=== PATIENT | male | born 1965 | race African-American/Black ===

== ENCOUNTER 2019-10-22 15:09 | Inpatient (IN) | payer MEDICARE, OTHER ==
[~2019-10-22] VITALS: Ht 180.3 cm; Wt 108.0 kg
[2019-10-22 22:30] VITALS: BP 125/80
[2019-10-22] MEDS ORDERED: BACL10TA PO (22:54)
[2019-10-22] MEDS ORDERED: OLAN20TA3 PO (22:56)
[2019-10-22] MEDS ORDERED: AMLO5TAB9 PO (22:57)
[2019-10-22] MEDS ORDERED: GABA-532 PO (22:57)
[2019-10-22] MEDS ORDERED: CITA40TA22 PO (22:58)
[2019-10-22] MEDS ORDERED: DIVA500T2 PO (22:59)
[2019-10-22] MEDS ORDERED: TEMAZEPAM 7.5 MG CAPSULE PO PRN (23:00)
[2019-10-22] MEDS ORDERED: ACETAMINOPHEN 325 MG TABLET PO PRN (23:00)
[2019-10-22] MEDS ORDERED: MAG HYDROX/AL HYDROX/SIMETH 30 ML UDC PO PRN (23:00)
[2019-10-22] MEDS ORDERED: BLOOD SUGAR DIAGNOSTIC 1 EACH STRIP IN ONE (23:00)
[2019-10-22] MEDS ORDERED: MAGNESIUM HYDROXIDE 30 ML UDC PO PRN (23:00)
--- NOTE | 2019-10-23 00:01 | NUR ---
ADMISSION NOTES: ADMITTED THIS 54Y/O MALE PATIENT ADMIT FROM [facility], ADMITTED TO GPS ON 5150 HOLD, PER HOLD DANGER TO SELF, HEARING VOCIES TELL HIM TO KILL HIMSELF AND OTHER PEOPLE, NO SPECIFIC MEANS, SUBJECT STATED HE IS DIAGNOSED WITH BIPOLAR AND SCHIZOPHRENIA AND HAS NOT TAKEN MEDICATION IN TWO WEEKS , UPON FACE TO FACE ASSESSMENT PATIENT IS A&O X 3,FLAT AFFECT, EASILY GETS AGITATED, DENIES SI /HI AT THIS TIME, PT. IS POOR HISTORIAN, POOR INSIGHT ,POOR JUDGEMENT , PT. REFUSED TO SIGNS ADMISSION CONSENT PAPERS , DUE TO SLEEPING, PT. REFUSED INTITAALY BLOOD SUGAR CHECK , ENCOURAGED, EXPLAINED RISKS AND BENEFITS STILL REFUSED, PER PT. I DONT WANTS CHECK AT THIS TIME I AM SLEEPING , BOTH MD AWARE AND NOTIFIED OF THE ADMISSION, BELONGINGS CONTRABAND WERE DONE , NURSING ASSESSMENT DONE ,PT. RIGHTS DISCUSS BY MATERIAL INSPECTOR , PROVIDE THE PT. WITH HANDBOOK, AND MEDICATIONS GUIDE, ENVIRONMENTAL SAFETY CHECK DONE, ENCOURAGED PT. VERBALIZED ANY FEELING CONCERN TO STAFF, ORIENT TO UNIT POLICY, NO ACUTE DISTRESS NOTED,VITAL SIGNS WNL ,DENIES ANY PAIN AT THIS TIME,WILL CONTINUE TO MONITOR FOR Q15 SAFETY AND BEHAVIOR.
[2019-10-23] MEDS ORDERED: BACLOFEN (10 MG) 10 MG TABLET PO PRN (02:00)
--- NOTE | 2019-10-23 06:25 | NUR ---
RN NOTES: PT. REFUSED MRSA NARES SWAB , ENCOURAGED X3 STILL REFUSED , WILL CONTINUITY WITH CARE.
--- NOTE | 2019-10-23 07:04 | NUR ---
RN NOTES : PLACED CALL PT. FAMILY MEMBER HARDEEP ONIDIN REGRDING ABOUT ADMISSION LEFT MESSAGE # [phone] .
[2019-10-23 08:00] VITALS: BP 131/78
[2019-10-23] MEDS: AMLODIPINE BESYLATE 5 MG TABLET PO SCH (09:01)
[2019-10-23] MEDS: clonazePAM 0.5 MG TABLET PO PRN ×2 (10:31→20:53)
--- NOTE | 2019-10-23 10:31 | NUR ---
RN NOTE: PT AGITATED. REQUESTING SOMETHING FOR ANXIETY MEDICATED PT WITH PRN KLONOPIN PO,
[2019-10-23 16:00] VITALS: BP 132/96
[2019-10-23] MEDS: DIVALPROEX SODIUM 500 MG TABLET.DR PO SCH (17:13)
[2019-10-23] MEDS: CITALOPRAM HYDROBROMIDE 20 MG TABLET PO SCH (17:13)
[2019-10-23] MEDS: GABAPENTIN 100 MG CAPSULE PO SCH (17:13)
[2019-10-23 20:00] VITALS: BP 132/71
[2019-10-23 20:05] VITALS: BP 132/71
--- NOTE | 2019-10-23 20:55 | NUR ---
PRN KLONOPIN GIVEN PATIENT STATED THAT HE IS ANXIOUS, RESTLESS & WANTS TO TAKE ANXIETY MEDICINE. KLONOPIN 0.5 MG PO PRN GIVEN ORDERED.
[2019-10-23] MEDS: OLANZAPINE 10 MG TABLET PO SCH (21:57)
--- NOTE | 2019-10-23 22:00 | NUR ---
PATIENT REFUSED SKIN ASSESSMENT PATIENT REFUSED SKIN ASSESSMENT DESPITE OF RISK & BENEFIT EXPLANATION. PT STATED, " STOP BOTHERING ME, MY SKIN IS CLEAR". WILL CONTINUE TO MONITOR FOR ANY CHANGES.
[2019-10-24 07:23] LABS: BASOPHILS % (AUTO) 0.8 % (0.0-2.0); EOSINOPHILS % (AUTO) 1.4 % (0.0-6.0); HEMATOCRIT 42 % (39-51); HEMOGLOBIN 13.1 g/dL (13.5-17.5); LYMPHOCYTES # (AUTO) 1.7 /CMM (0.8-4.8); LYMPHOCYTES % (AUTO) 36.2 % (20.0-44.0); MEAN CORPUSCULAR HGB CONC 31 g/dl (31.0-36.0); MEAN CORPUSCULAR VOLUME 77 fL (80-96); MONOCYTES # (AUTO) 0.5 /CMM (0.1-1.30); MONOCYTES % (AUTO) 10.7 % (2.0-12.0); NEUTROPHILS # (AUTO) 2.4 /CMM (1.8-8.9); NEUTROPHILS % (AUTO) 50.9 % (43.0-81.0); PLATELET COUNT (AUTO) 213 /CMM (150-450); RED BLOOD CELL COUNT(AUTO) 5.46 MIL/uL (4.5-6.0); WHITE BLOOD COUNT (AUTO) 4.7 K/uL (4.3-11.0)
[2019-10-24 07:36] LABS: CALCIUM, SERUM 8.5 mg/dL (8.5-10.1); CREATININE 0.9 mg/dL (0.6-1.3); POTASSIUM 3.7 mmol/L (3.5-5.1)
[2019-10-24 08:00] VITALS: BP 109/62
[2019-10-24] MEDS: AMLODIPINE BESYLATE 5 MG TABLET PO SCH (09:00)
[2019-10-24] MEDS: DIVALPROEX SODIUM 500 MG TABLET.DR PO SCH ×3 (09:06→17:32)
[2019-10-24] MEDS: GABAPENTIN 100 MG CAPSULE PO SCH ×3 (09:06→17:32)
[2019-10-24] MEDS: CITALOPRAM HYDROBROMIDE 20 MG TABLET PO SCH (09:06)
[2019-10-24] MEDS: clonazePAM 0.5 MG TABLET PO PRN (13:00)
[2019-10-24 16:00] VITALS: BP 113/72
[2019-10-24 20:00] VITALS: BP 122/67
[2019-10-24 20:38] VITALS: BP 122/67
[2019-10-24] MEDS: OLANZAPINE 10 MG TABLET PO SCH (21:23)
[2019-10-25 08:00] VITALS: BP 126/73
[2019-10-25] MEDS: GABAPENTIN 100 MG CAPSULE PO SCH ×3 (09:13→16:49)
[2019-10-25] MEDS: CITALOPRAM HYDROBROMIDE 20 MG TABLET PO SCH (09:13)
[2019-10-25] MEDS: DIVALPROEX SODIUM 500 MG TABLET.DR PO SCH ×3 (09:13→16:49)
[2019-10-25] MEDS: AMLODIPINE BESYLATE 5 MG TABLET PO SCH (09:16)
[2019-10-25] MEDS: NICOTINE PATCH (7MG) 7 MG PATCH.TD24 TD SCH (09:23)
--- NOTE | 2019-10-25 11:59 | NUR ---
INITIAL DISCHARGE PLAN: Patient is currently homeless and wishes to be places at a SNF, [facility], or independent living. Pt states he is only able to afford to pay $800/month. SW will help form a safe and proper discharge in collaboration with .
--- NOTE | 2019-10-25 15:00 | NUR ---
GROUP NOTE: SW encouraged pt to attend group on this present day discussing "suicidal urges." Pt states that he continues to feel sad and having auditory hallucinations and states he does not want to go out of his room because his voices wont allow him to. Pt states the medication is helping his voices "go away," but states that he has had them for a many years and can live with them but not when they are telling him to hurt himself. Pt appears paranoid and responding to internal stimuli and did not maintain eye contact. SW will continue to provide clinical interventions and assess level of suicidality and pt will show decreased suicidal urges evident in verbalization of absence of suicidal ideation.
[2019-10-25 16:00] VITALS: BP 134/75
[2019-10-25] MEDS: clonazePAM 0.5 MG TABLET PO PRN (16:54)
--- NOTE | 2019-10-25 16:54 | NUR ---
RN NOTE- PT W STATED ANXIETY. REQUESTED KLONOPIN . KLONOPIN 0.5 MG GIVEN
--- NOTE | 2019-10-25 17:24 | NUR ---
RN NOTE- SPEAKING W PT, STATED HEARING VOICES "KILL" AT TIMES. STATED CONTRACT VERBALLY FOR SAFETY. STATES HE HEARS VOICES OFTEN. WILL CONTINUE TO MONITOR AND PROVIDE CALM ENVIRONMENT
[2019-10-25 20:33] VITALS: BP 117/73
[2019-10-25] MEDS: OLANZAPINE 10 MG TABLET PO SCH (21:13)
[2019-10-26 08:00] VITALS: BP 115/75
[2019-10-26] MEDS: GABAPENTIN 100 MG CAPSULE PO SCH ×3 (08:13→16:11)
[2019-10-26] MEDS: CITALOPRAM HYDROBROMIDE 20 MG TABLET PO SCH (08:13)
[2019-10-26] MEDS: DIVALPROEX SODIUM 500 MG TABLET.DR PO SCH ×3 (08:13→16:11)
[2019-10-26] MEDS: NICOTINE PATCH (7MG) 7 MG PATCH.TD24 TD SCH (08:13)
[2019-10-26] MEDS: AMLODIPINE BESYLATE 5 MG TABLET PO SCH (08:13)
[2019-10-26] MEDS: clonazePAM 0.5 MG TABLET PO PRN (12:28)
--- NOTE | 2019-10-26 12:28 | NUR ---
RN-CO: KLONOPIN 0.5 MG PO FOR ANXIETY.
--- NOTE | 2019-10-26 14:17 | NUR ---
SNF REFERRAL: CHANDU faxed SNF referral to Dot, wedding day coordinator at [facility] Address: [address], [place] [address] for review.
--- NOTE | 2019-10-26 14:43 | NUR ---
RN-CO: Dr Coello made aware of patient's complaint of auditory hallucinations. However patient denied suicidal and homicidal ideation.
[2019-10-26 16:00] VITALS: BP 118/68
[2019-10-26 20:05] VITALS: BP 109/66
[2019-10-26] MEDS: OLANZAPINE 10 MG TABLET PO SCH (21:30)
[2019-10-27] MEDS: CITALOPRAM HYDROBROMIDE 20 MG TABLET PO SCH (08:45)
[2019-10-27] MEDS: AMLODIPINE BESYLATE 5 MG TABLET PO SCH (08:45)
[2019-10-27] MEDS: DIVALPROEX SODIUM 500 MG TABLET.DR PO SCH ×3 (08:45→16:54)
[2019-10-27] MEDS: GABAPENTIN 100 MG CAPSULE PO SCH ×3 (08:45→16:55)
[2019-10-27] MEDS: NICOTINE PATCH (7MG) 7 MG PATCH.TD24 TD SCH (08:54)
[2019-10-27] MEDS: clonazePAM 0.5 MG TABLET PO PRN ×2 (08:54→12:54)
[2019-10-27 09:35] VITALS: BP 123/93
--- NOTE | 2019-10-27 12:58 | NUR ---
SNF REFERRAL: SW received a call from Dot, aquatics coordinator at [facility] [address] [place] [address] stating pt was not accepted due to the facility not having male beds available.
--- NOTE | 2019-10-27 13:20 | NUR ---
SNF REFERRAL: CHANDU faxed SNF referral to KAYLEE, guest relations coordinator at [facility] Address: [place] [address] for review. Addendum: 10/28/19 at 0917 by LARA SCHOFIELD CHANDU also faxed SNF referral to [facility] Address: [address] [place] [address] for review.
[2019-10-27 16:00] VITALS: BP 136/88
[2019-10-27] MEDS: OLANZAPINE 10 MG TABLET PO SCH (21:00)
[2019-10-27 22:09] VITALS: BP 124/80
[2019-10-28 08:00] VITALS: BP 131/76
[2019-10-28] MEDS: AMLODIPINE BESYLATE 5 MG TABLET PO SCH (08:59)
[2019-10-28] MEDS: CITALOPRAM HYDROBROMIDE 20 MG TABLET PO SCH (09:00)
[2019-10-28] MEDS: GABAPENTIN 100 MG CAPSULE PO SCH ×3 (09:00→17:00)
[2019-10-28] MEDS: NICOTINE PATCH (7MG) 7 MG PATCH.TD24 TD SCH (09:00)
[2019-10-28] MEDS: DIVALPROEX SODIUM 500 MG TABLET.DR PO SCH ×3 (09:00→17:00)
--- NOTE | 2019-10-28 09:17 | NUR ---
SNF REFERRAL: SW received a call from Dottie, placement coordinator at [facility] Address: [address] [place] [address] stating pt has been accepted and will be assigned to room 22A.
--- NOTE | 2019-10-28 09:56 | NUR ---
HOMELESS WAIVER: Pt refused to sign the homeless waiver stating he was not ready to go, SW attempted intervention and homeless waiver refusal was witnessed by RN.
--- NOTE | 2019-10-28 10:46 | NUR ---
DISCHARGE NOTE: Pt will be discharged at 2:00pm via [facility] to [facility] Address: [address] [place] [address] Room #22A6. Pt has no family to notify. Pt refused to sign the homeless waives and also refused homeless resources. Pt states that he is not ready to leave and wants to stay in the hospital longer. Pts mood is dysphoric with flat affect. Pt states he is hearing voices and states he has heard voices all his life, Pt denied suicidal/homicidal ideation and denied visual hallucinations. Pt is alert and oriented x4. Pt will address his substance use with Psychiatrist: Dr. Monroy Address: [address] [place] [address] and Perioperative Manager: Dr Roger Address: [address] [address] [phone]. The multidisciplinary exit care form was done, printed, signed, and given to the patient.
--- NOTE | 2019-10-28 10:53 | NUR ---
gave an order to D/C hold and D/C to [facility], to continue same including prn and to follow up with psych and medical doctors.
--- NOTE | 2019-10-28 11:28 | NUR ---
Dr. Bernstein made aware of the discharge and reconciled the meds.
[2019-10-28 16:00] VITALS: BP 133/85
--- NOTE | 2019-10-28 17:15 | NUR ---
RN NOTE- DC NOTE- PT DC AT THIS TIME TO SNF VIA GURNEY AND AMBULANCE. PT ALERT ORIENTED TO TIME PLACE AND PURPOSE. VS STABLE, DC PAPERWORK AND ORDERS REVIEWED W AMBULANCE STAFF AND PT. VERBALIZED UNDERSTANDING. DENIES SI HI VH AT THIS TIME. VALUABLES RETURNED. ID WRISTBAND REMOVED. NO PHOTOS TAKEN SKIN INTACT. ESCORTED OUT OF UNIT.
--- NOTE | 2019-11-23 09:01 | NUR ---
15 DAY SUBSTANCE ABUSE FOLLOW UP: excluded due to D/C to SNF.
== END 2019-10-28 17:10 | DRG 885 ==
LOC: GPS 21:51
PROVIDERS: ADMIT Psychiatry & Neurology Psychiatry; ATTEND Student in an Organized Health Care Education/Training Program
DX: F25.9 Schizoaffective disorder, unspecified (principal); F23 Brief psychotic disorder; R45.851 Suicidal ideations; F31.9 Bipolar disorder, unspecified; I10 Essential (primary) hypertension; D63.8 Anemia in other chronic diseases classified elsewhere; F17.210 Nicotine dependence, cigarettes, uncomplicated; F10.10 Alcohol abuse, uncomplicated; K21.9 Gastro-esophageal reflux disease without esophagitis; Z91.14 Patient's other noncompliance with medication regimen
CPT/HCPCS: 36415; 80048-TC; 80061-TC; 84443-TC; 85025-TC

== ENCOUNTER → 2019-11-15 | Outpatient (CLI) | payer MEDICARE, OTHER ==
[~2019-11-15] MED LIST: AMLO5TAB9 PO; BACL10TA PO; CITA40TA22 PO; DIVA500T2 PO; GABA-532 PO; OLAN20TA3 PO
== END | disposition home or self-care (01) ==
LOC: MSC 10:40
PROVIDERS: ATTEND Anesthesiology
DX: M47.27 Other spondylosis with radiculopathy, lumbosacral region (principal); M46.96 Unspecified inflammatory spondylopathy, lumbar region; M96.1 Postlaminectomy syndrome, not elsewhere classified; M62.830 Muscle spasm of back; G89.29 Other chronic pain; M79.605 Pain in left leg; M79.604 Pain in right leg; Z79.891 Long term (current) use of opiate analgesic